=== PATIENT | female | born 1935 | race Caucasian/White ===

== ENCOUNTER → 2016-12-05 | Outpatient (CLI) | payer MEDICARE, BC ==
[~2016-12-05] MED LIST: BENTYL 20MG20 MG/TAB PO; DAILY MULTIPLE1 T18 PO; FLORAJEN A20 Billion PO; MUCINEX DM 60 M1 TER PO; NORCO 325 MG-7.1 TAB PO; PEPCID 20MG TAB20 MG PO; PROTONIX 40MG T40 MG PO; SYNTHROID0.088 MG/T PO; ZOFRAN 4MG T4 MG/TAB PO; ZYRTEC 10MG10 MG PO
[2016-12-05 11:56] LABS: BASO # 0.1 (0.0-0.2); EOS # 0.2 (0.0-0.7); EOS % 3.1 % (0-4.0); GRAN # 3.5 (1.4-6.5); GRAN % 51.9 % (42.2-75.2); HEMATOCRIT 40.5 % (37.0-47.0); HEMOGLOBIN 13.4 g/dl (12.5-16.0); LYMPH # 2.5 (1.2-3.4); LYMPH % 37.3 % (20.0-51.0); MEAN CELL VOLUME 94 fl (80.0-100.0); MEAN CORPUSCULAR HEMOGLOBIN 31 pg (27.0-31.0); MEAN CORPUSCULAR HGB CONC 33 g/dl (33.0-37.0); MEAN PLATELET VOLUME 10.1 fl (7.4-10.4); MONO # 0.4 (0.1-0.6); MONO % 6.3 % (1.7-9.3); PLATELET COUNT 221 K/mm3 (130-400); RED BLOOD COUNT 4.32 M/mm3 (4.10-5.30); WHITE BLOOD COUNT 6.7 K/mm3 (4.8-10.8)
[2016-12-05 12:07] LABS: ADJUSTED CALCIUM 9.6 mg/dL (8.4-10.2); ALBUMIN 3.9 gm/dL (3.5-5.0); BILIRUBIN,TOTAL 0.8 mg/dL (0.0-1.0); CALCIUM 9.5 mg/dL (8.4-10.2); CREATININE, serum 0.76 mg/dL (0.52-1.25); POTASSIUM 4.3 mmol/L (3.4-5.0); TOTAL PROTEIN 7.4 gm/dL (6.4-8.2)
== END ==
LOC: COL.LAB 11:34
PROVIDERS: Internal Medicine Gastroenterology
DX: K92.1 Melena (principal)

== ENCOUNTER → 2016-12-06 | Outpatient (CLI) | payer MEDICARE, BC | LOC: COL.RAD 07:44 | DX: K92.1 Melena (principal) | CPT/HCPCS: Q9967 ==

== ENCOUNTER 2017-05-06 16:05 | Emergency (ER) | payer MEDICARE, BC ==
[~2017-05-06] VITALS: Ht 180.3 cm; Wt 82.1 kg
[2017-05-06 16:09] VITALS: BP 120/64; TEMP 97.8
[2017-05-06] MEDS ORDERED: SYNTHROID0.088 MG/T PO (16:11)
[2017-05-06 19:00] VITALS: PULSE 60
== END 2017-05-06 19:00 | disposition home or self-care (01) ==
LOC: COL.ER 16:05
DX: J06.9 Acute upper respiratory infection, unspecified (principal); J01.90 Acute sinusitis, unspecified; E03.9 Hypothyroidism, unspecified

== ENCOUNTER 2017-06-03 03:47 | Emergency (ER) | payer MEDICARE, BC ==
[~2017-06-03] VITALS: Wt 79.5 kg
[~2017-06-03 03:47] MED LIST changes: -BENTYL 20MG20 MG/TAB PO; -DAILY MULTIPLE1 T18 PO; -FLORAJEN A20 Billion PO; -MUCINEX DM 60 M1 TER PO; -NORCO 325 MG-7.1 TAB PO; -PEPCID 20MG TAB20 MG PO; -PROTONIX 40MG T40 MG PO; -ZOFRAN 4MG T4 MG/TAB PO; -ZYRTEC 10MG10 MG PO
[2017-06-03 04:04] VITALS: TEMP 98.3
[2017-06-03 04:20] LABS: BASO # 0.1 (0.0-0.2); BASO % 0.4 % (0.0-2.0); EOS # 0.2 (0.0-0.7); EOS % 1.7 % (0-4.0); GRAN # 7.2 (1.4-6.5); GRAN % 62.3 % (42.2-75.2); HEMATOCRIT 41.1 % (37.0-47.0); HEMOGLOBIN 13.7 g/dl (12.5-16.0); LYMPH # 3.6 (1.2-3.4); LYMPH % 30.8 % (20.0-51.0); MEAN CELL VOLUME 93 fl (80.0-100.0); MEAN CORPUSCULAR HEMOGLOBIN 31 pg (27.0-31.0); MEAN CORPUSCULAR HGB CONC 33 g/dl (33.0-37.0); MEAN PLATELET VOLUME 10.1 fl (7.4-10.4); MONO # 0.5 (0.1-0.6); MONO % 4.5 % (1.7-9.3); PLATELET COUNT 197 K/mm3 (130-400); REDCELL DISTRIBUTION WIDTH-CV 12.8 % (11.5-14.5); WHITE BLOOD COUNT 11.5 K/mm3 (4.8-10.8)
[2017-06-03 04:36] LABS: ALANINE AMINOTRANSFERASE 92 U/L (9-52); ALBUMIN 3.9 gm/dL (3.5-5.0); ALKALINE PHOSPHATASE 123 U/L (50-136); ANION GAP 8 mmol/L (7-16); BLOOD UREA NITROGEN 13 mg/dL (7-17); C-REACTIVE PROTEIN 0.6 mg/dL (0.0-0.9); CALCIUM 8.9 mg/dL (8.4-10.2); CARBON DIOXIDE 25 mmol/L (22-30); CHLORIDE 108 mmol/L (98-107); CREATININE, serum 0.69 mg/dL (0.52-1.25); GLUCOSE 99 mg/dL (74-106); LIPASE 50 U/L (23-300); POTASSIUM 3.3 mmol/L (3.4-5.0); SODIUM 141 mmol/L (137-145); TOTAL PROTEIN 7.3 gm/dL (6.4-8.2)
[2017-06-03 04:50] LABS: TROPONIN-I < 0.012 ng/mL (0.000-0.034)
[2017-06-03 06:02] LABS: PH 5 (5-8); SQUAMOUS EPITHELIAL None Seen /hpf; URINE APPEARANCE Clear; URINE BACTERIA Rare /hpf; URINE BILIRUBIN Negative (NEGATIVE); URINE BLOOD 1+ (NEGATIVE); URINE COLOR Yellow; URINE GLUCOSE Negative (NEGATIVE); URINE KETONE Negative (NEGATIVE); URINE RBC 0-2 /hpf; URINE UROBILINOGEN Negative (NEGATIVE)
[2017-06-03] MEDS ORDERED: ZOFRAN 4MG T4 MG/TAB PO (06:18)
[2017-06-03 06:33] VITALS: BP 125/59; PULSE 73
== END 2017-06-03 06:32 | disposition home or self-care (01) ==
LOC: COL.ER 03:47
PROVIDERS: Emergency Medicine
DX: R19.7 Diarrhea, unspecified (principal); R10.9 Unspecified abdominal pain; R11.10 Vomiting, unspecified; E03.9 Hypothyroidism, unspecified; Z90.89 Acquired absence of other organs; Z90.49 Acquired absence of other specified parts of digestive tract; Z90.710 Acquired absence of both cervix and uterus
CPT/HCPCS: J2270; J2405; J7030; Q9967

== ENCOUNTER 2017-06-04 13:13 | Observation (INO) | payer MEDICARE, BC ==
[~2017-06-04] VITALS: Ht 177.8 cm; Wt 79.4 kg
[~2017-06-04 13:13] MED LIST changes: +ZOFRAN 4MG T4 MG/TAB PO
[2017-06-04 14:04] LABS: BASO % 0.2 % (0.0-2.0); EOS % 0.1 % (0-4.0); GRAN # 10.4 (1.4-6.5); GRAN % 78.9 % (42.2-75.2); HEMATOCRIT 37.3 % (37.0-47.0); HEMOGLOBIN 12.5 g/dl (12.5-16.0); LYMPH # 1.9 (1.2-3.4); LYMPH % 14.1 % (20.0-51.0); MEAN CELL VOLUME 93 fl (80.0-100.0); MEAN CORPUSCULAR HEMOGLOBIN 31 pg (27.0-31.0); MEAN CORPUSCULAR HGB CONC 34 g/dl (33.0-37.0); MEAN PLATELET VOLUME 10.3 fl (7.4-10.4); MONO # 0.8 (0.1-0.6); MONO % 6.2 % (1.7-9.3); PLATELET COUNT 169 K/mm3 (130-400); WHITE BLOOD COUNT 13.2 K/mm3 (4.8-10.8)
[2017-06-04 14:09] LABS: ADJUSTED CALCIUM 8.9 mg/dL (8.4-10.2); ALBUMIN 3.6 gm/dL (3.5-5.0); BILIRUBIN,TOTAL 2.4 mg/dL (0.0-1.0); CALCIUM 8.6 mg/dL (8.4-10.2); CREATININE, serum 0.71 mg/dL (0.52-1.25); POTASSIUM 3.7 mmol/L (3.4-5.0); TOTAL PROTEIN 6.7 gm/dL (6.4-8.2)
[2017-06-04 14:25] LABS: C-REACTIVE PROTEIN 15.5 mg/dL (0.0-0.9)
[2017-06-04 14:35] LABS: ERYTHROCYTE SEDIMENTATION RATE 22 mm/hr (0-30)
[2017-06-04 16:21] VITALS: BP 120/55; PULSE 72; TEMP 98.2
[2017-06-04 20:02] VITALS: BP 98/45; PULSE 74; TEMP 98.1
[2017-06-05] VITALS (7 sets, daily range): BP systolic 97–129; BP diastolic 39–67; PULSE 68–80; TEMP 97.8–98.5
[2017-06-05 07:26] LABS: BASO % 0.2 % (0.0-2.0); EOS # 0.1 (0.0-0.7); EOS % 0.9 % (0-4.0); GRAN # 6.6 (1.4-6.5); GRAN % 73.6 % (42.2-75.2); HEMATOCRIT 31.5 % (37.0-47.0); HEMOGLOBIN 10.6 g/dl (12.5-16.0); LYMPH # 1.8 (1.2-3.4); LYMPH % 19.4 % (20.0-51.0); MEAN CELL VOLUME 94 fl (80.0-100.0); MEAN CORPUSCULAR HEMOGLOBIN 32 pg (27.0-31.0); MEAN CORPUSCULAR HGB CONC 34 g/dl (33.0-37.0); MEAN PLATELET VOLUME 11.3 fl (7.4-10.4); MONO # 0.5 (0.1-0.6); MONO % 5.5 % (1.7-9.3); PLATELET COUNT 151 K/mm3 (130-400); RED BLOOD COUNT 3.36 M/mm3 (4.10-5.30); REDCELL DISTRIBUTION WIDTH-CV 13.1 % (11.5-14.5)
[2017-06-05 07:49] LABS: ALBUMIN 2.8 gm/dL (3.5-5.0); CREATININE, serum 0.6 mg/dL (0.52-1.25); POTASSIUM 3.7 mmol/L (3.4-5.0); TOTAL PROTEIN 5.7 gm/dL (6.4-8.2)
[2017-06-06 03:30] VITALS: BP 121/52; PULSE 66; TEMP 98.3
[2017-06-06 06:31] LABS: BASO % 0.4 % (0.0-2.0); EOS # 0.2 (0.0-0.7); EOS % 1.9 % (0-4.0); GRAN # 4.7 (1.4-6.5); GRAN % 61.3 % (42.2-75.2); LYMPH # 2.3 (1.2-3.4); LYMPH % 29.4 % (20.0-51.0); MEAN CELL VOLUME 91 fl (80.0-100.0); MEAN CORPUSCULAR HGB CONC 34 g/dl (33.0-37.0); MEAN PLATELET VOLUME 11.2 fl (7.4-10.4); MONO # 0.5 (0.1-0.6); MONO % 6.5 % (1.7-9.3); PLATELET COUNT 177 K/mm3 (130-400); RED BLOOD COUNT 3.53 M/mm3 (4.10-5.30); REDCELL DISTRIBUTION WIDTH-CV 12.9 % (11.5-14.5); WHITE BLOOD COUNT 7.7 K/mm3 (4.8-10.8)
[2017-06-06 06:32] LABS: HEMATOCRIT 32.1 % (37.0-47.0); MEAN CORPUSCULAR HEMOGLOBIN 31 pg (27.0-31.0)
[2017-06-06 06:40] LABS: ADJUSTED CALCIUM 9.1 mg/dL (8.4-10.2); ALBUMIN 2.9 gm/dL (3.5-5.0); BILIRUBIN,TOTAL 1.1 mg/dL (0.0-1.0); CALCIUM 8.2 mg/dL (8.4-10.2); CREATININE, serum 0.57 mg/dL (0.52-1.25); POTASSIUM 3.2 mmol/L (3.4-5.0); TOTAL PROTEIN 5.9 gm/dL (6.4-8.2)
[2017-06-06 08:09] VITALS: BP 118/54; PULSE 63; TEMP 98.7
[2017-06-06 12:13] VITALS: BP 114/50; PULSE 53; TEMP 98.3
[2017-06-06] MEDS ORDERED: NORCO 325 MG-7.1 TAB PO (12:28)
[2017-06-06] MEDS ORDERED: BENTYL 20MG20 MG/TAB PO (12:28)
[2017-06-06] MEDS ORDERED: PEPCID 20MG TAB20 MG PO (12:29)
== END 2017-06-06 15:46 | disposition home or self-care (01) ==
LOC: COL.LAB 13:13 → MEDICAL 15:07
PROVIDERS: Internal Medicine; Physician Assistant
DX: K29.50 Unspecified chronic gastritis without bleeding (principal); K65.9 Peritonitis, unspecified; E86.0 Dehydration; E87.6 Hypokalemia; E03.9 Hypothyroidism, unspecified; I95.9 Hypotension, unspecified; R19.7 Diarrhea, unspecified; Z90.710 Acquired absence of both cervix and uterus; Z82.49 Family history of ischemic heart disease and other diseases of the circulatory system; Z80.1 Family history of malignant neoplasm of trachea, bronchus and lung; Z83.3 Family history of diabetes mellitus; Z90.49 Acquired absence of other specified parts of digestive tract; Z96.652 Presence of left artificial knee joint
CPT/HCPCS: 99233-AI; C9113; G0378; G0379; J1170; J3480; J7030; Q9967

== ENCOUNTER 2017-06-12 08:04 | Day surgery (SDC) | payer MEDICARE, BC ==
[~2017-06-12] VITALS: Ht 180.3 cm; Wt 78.2 kg
[~2017-06-12 08:04] MED LIST changes: +BENTYL 20MG20 MG/TAB PO; +NORCO 325 MG-7.1 TAB PO; +PEPCID 20MG TAB20 MG PO
[2017-06-12 08:34] VITALS: BP 114/65; PULSE 64; TEMP 98.2
[2017-06-12] MEDS ORDERED: DAILY MULTIPLE1 T18 PO (08:52)
[2017-06-12] MEDS ORDERED: ZYRTEC 10MG10 MG PO (08:57)
[2017-06-12] MEDS ORDERED: PROTONIX 40MG T40 MG PO (08:58)
[2017-06-12] MEDS ORDERED: MUCINEX DM 60 M1 TER PO (08:58)
[2017-06-12] MEDS ORDERED: FLORAJEN A20 Billion PO (09:00)
[2017-06-12 10:05] VITALS: BP 109/62; PULSE 55; TEMP 97.9
[2017-06-12 10:15] VITALS: BP 109/66; PULSE 52
[2017-06-12 10:30] VITALS: BP 117/66; PULSE 63
[2017-06-12 10:45] VITALS: BP 135/76; PULSE 54
[2017-06-12 11:00] VITALS: BP 130/71; PULSE 61
== END 2017-06-12 11:20 | disposition home or self-care (01) ==
LOC: SDCO 08:04
DX: K29.50 Unspecified chronic gastritis without bleeding (principal); K27.9 Peptic ulcer, site unspecified, unspecified as acute or chronic, without hemorrhage or perforation; G89.29 Other chronic pain; G40.909 Epilepsy, unspecified, not intractable, without status epilepticus; E03.9 Hypothyroidism, unspecified; K63.5 Polyp of colon; K57.90 Diverticulosis of intestine, part unspecified, without perforation or abscess without bleeding; K64.9 Unspecified hemorrhoids
CPT/HCPCS: OP; J2250; J3010; J7030

== ENCOUNTER → 2017-08-28 | Outpatient (CLI) | payer MEDICARE, BC ==
[~2017-08-28] MED LIST changes: +DAILY MULTIPLE1 T18 PO; +FLORAJEN A20 Billion PO; +MUCINEX DM 60 M1 TER PO; +PROTONIX 40MG T40 MG PO; +ZYRTEC 10MG10 MG PO
== END ==
LOC: MC.RAD 13:19
DX: Z12.31 Encounter for screening mammogram for malignant neoplasm of breast (principal)

== ENCOUNTER → 2018-10-25 | Outpatient (CLI) | payer MEDICARE, BC | LOC: MC.RAD 11:16 | DX: Z12.31 Encounter for screening mammogram for malignant neoplasm of breast (principal) ==

== ENCOUNTER 2021-01-04 13:45 | Outpatient (RCR) | payer MEDICARE, BC | END 2021-01-05 | disposition home or self-care (01) | LOC: WSST | DX: R41.841 Cognitive communication deficit (principal); R41.3 Other amnesia ==

== ENCOUNTER 2021-04-20 13:15 | Outpatient (RCR) | payer MEDICARE, BC | END 2021-04-25 | disposition home or self-care (01) | LOC: WSST | DX: R41.841 Cognitive communication deficit (principal); R41.3 Other amnesia ==

== ENCOUNTER 2021-06-03 15:34 | Outpatient (RCR) | payer MEDICARE, BC | END 2021-09-01 | disposition home or self-care (01) | LOC: WSST | DX: R41.841 Cognitive communication deficit (principal); R41.3 Other amnesia ==

== ENCOUNTER → 2021-12-09 | Outpatient (CLI) | payer MEDICARE, BC | LOC: COL.RAD 09:35 | DX: K21.9 Gastro-esophageal reflux disease without esophagitis (principal) ==